=== PATIENT | female | born 1995 | race Caucasian/White ===

== ENCOUNTER 2018-04-20 14:04 | Inpatient (IN) | payer OTHER ==
[~2018-04-20] VITALS: Ht 152.4 cm; Wt 52.6 kg
[2018-04-20] MEDS ORDERED: RINGERS SOLUTION,LACTATED 1,000 ML IV PRN (14:23)
[2018-04-20] MEDS ORDERED: OXYTOCIN 30 UNITS/LACT RINGERS 500 ML IV ONE (14:23)
[2018-04-20 14:30] VITALS: BP 115/57
[2018-04-20] MEDS ORDERED: LIDOCAINE/PF 1% 30 ML VIAL INJ PRN (14:30)
[2018-04-20] MEDS ORDERED: METOCLOPRAMIDE HCL 5 MG/ML 2 ML VIAL IVP PRN (14:30)
[2018-04-20] MEDS ORDERED: CITRIC ACID/SODIUM CITRATE 30 ML SOLUTION UDCUP PO PRN (14:30)
[2018-04-20 15:05] LABS: BASOPHILS % (AUTO) 0.1 % (0.0-2.0); EOSINOPHILS % (AUTO) 0.2 % (1.0-6.0); HEMATOCRIT 31.9 % (36-46); LYMPHOCYTES # (AUTO) 1.1 K/uL (1.0-4.8); LYMPHOCYTES % (AUTO) 15.3 % (22.0-44.0); MEAN CORPUSCULAR HEMOGLOBIN 31.4 pg (26.0-34.0); MEAN CORPUSCULAR HGB CONC 34.6 G/dL (31.0-37.0); MEAN CORPUSCULAR VOLUME 91 fL (80-100); MONOCYTES # (AUTO) 0.4 K/uL (0.1-1.0); NEUTROPHILS # (AUTO) 5.5 K/uL (1.8-7.7); NEUTROPHILS % (AUTO) 78.4 % (40.0-70.0); PLATELET COUNT (AUTO) 138 K/uL (150-450); RED BLOOD CELL COUNT(AUTO) 3.52 MIL/uL (4.00-5.20); RED CELL DISTRIBUTION WIDTH 13.5 % (11.5-14.5)
[2018-04-20] MEDS ORDERED: MISOPROSTOL 25 MCG TABLET PO ONE (15:30)
[2018-04-20] MEDS ORDERED: ERYTHROMYCIN BASE 500 MG TABLET PO ONE (16:00)
[2018-04-20] MEDS: RINGERS SOLUTION,LACTATED 1,000 ML IV SCH ×2 (16:31→20:48)
[2018-04-20] MEDS ORDERED: FERR-89 PO (17:26)
[2018-04-20] MEDS ORDERED: PREN1TAB80 PO (17:26)
[2018-04-20] MEDS ORDERED: FOLI1 PO (17:26)
[2018-04-20] MEDS ORDERED: OXYGEN THERAPY IH SCH (20:00)
[2018-04-20] MEDS: FentaNYL CITRATE-PF 100 MCG/2 ML VIAL IVP PRN ×2 (22:02→22:08)
[2018-04-20] MEDS ORDERED: ROPIVACAINE HCL/PF 0.2% 100 ML ED ONE (23:50)
[2018-04-21] MEDS ORDERED: ROPIVACAINE HCL/PF 0.2% 100 ML ED PRN (00:15)
[2018-04-21] MEDS ORDERED: ONDANSETRON HCL 4 MG/2 ML VIAL IVP PRN (00:15)
[2018-04-21] MEDS ORDERED: DiphenhydrAMINE HCL 50 MG/ML VIAL IVP PRN (00:15)
[2018-04-21] MEDS ORDERED: OXYTOCIN 30 UNITS/LACT RINGERS 500 ML IV PRN (00:27)
[2018-04-21] MEDS: RINGERS SOLUTION,LACTATED 1,000 ML IV SCH (03:20)
[2018-04-21] MEDS ORDERED: SODIUM CHLORIDE 0.9% 1,000 ML IV ONE (04:02)
[2018-04-21] MEDS ORDERED: OXYTOCIN 30 UNITS/LACT RINGERS 500 ML IV ONE (05:27)
[2018-04-21] MEDS ORDERED: BENZOCAINE 20%/MENTHOL 56 GM SPRAY CANISTER TP PRN (05:30)
[2018-04-21] MEDS ORDERED: OxyCODONE HCL/ACETAMINOPHEN 5-325 MG TABLET PO PRN ×2 (05:30)
[2018-04-21] MEDS ORDERED: MAGNESIUM HYDROXIDE SUSPENSION 30 ML UDCUP PO PRN (05:30)
[2018-04-21] MEDS ORDERED: LANOLIN 7 GM OINTMENT TP PRN (05:30)
[2018-04-21] MEDS ORDERED: IBUPROFEN 800 MG TABLET PO PRN (05:30)
[2018-04-21] MEDS ORDERED: GLYCERIN/WITCH HAZEL LEAF 40 PADS JAR TP PRN (05:30)
[2018-04-22 06:44] LABS: BASOPHILS % (AUTO) 0.2 % (0.0-2.0); EOSINOPHILS % (AUTO) 0.5 % (1.0-6.0); HEMATOCRIT 26.7 % (36-46); HEMOGLOBIN 9.3 g/dL (12.0-16.0); LYMPHOCYTES # (AUTO) 1.6 K/uL (1.0-4.8); MEAN CORPUSCULAR HEMOGLOBIN 31.5 pg (26.0-34.0); MEAN CORPUSCULAR VOLUME 90 fL (80-100); MONOCYTES # (AUTO) 0.7 K/uL (0.1-1.0); MONOCYTES % (AUTO) 7.4 % (2.0-9.0); NEUTROPHILS # (AUTO) 6.6 K/uL (1.8-7.7); NEUTROPHILS % (AUTO) 73.9 % (40.0-70.0); PLATELET COUNT (AUTO)-OB 114 K/uL (150-450); RED BLOOD CELL COUNT(AUTO) 2.97 MIL/uL (4.00-5.20); RED CELL DISTRIBUTION WIDTH 13.7 % (11.5-14.5)
== END 2018-04-22 13:10 | disposition home or self-care (01) | DRG 807 ==
LOC: 4S 14:04 → OBSVTOIN 14:04
PROVIDERS: ADMIT Obstetrics & Gynecology; ATTEND Obstetrics & Gynecology
PROC: 10E0XZZ Delivery of Products of Conception, External Approach (ICD-10-PCS; principal; 2018-04-21)
PROC: 0HQ9XZZ Repair Perineum Skin, External Approach (ICD-10-PCS; 2018-04-21)
PROC: 3E0R3BZ Introduction of Anesthetic Agent into Spinal Canal, Percutaneous Approach (ICD-10-PCS; 2018-04-21)
PROC: 00HU33Z Insertion of Infusion Device into Spinal Canal, Percutaneous Approach (ICD-10-PCS; 2018-04-21)
DX: O70.0 First degree perineal laceration during delivery (principal); Z37.0 Single live birth; Z3A.37 37 weeks gestation of pregnancy
CPT/HCPCS: 86850; 86900; 86901; J2590; J2795; J3010; J7030; J7120